=== PATIENT | male | born 1965 | race Caucasian/White ===

== ENCOUNTER 2018-04-27 08:59 | Observation (INO) | payer BC ==
[2018-04-27 09:37] LABS: #Eosinphils 0.3 thou/uL (0.0-0.7); #Lymphocytes 1.6 thou/uL (1.20-3.40); #Monocytes 0.5 thou/uL (0.11-0.59); #Neutrophils 3.2 thou/uL (1.40-6.50); %Basophils 0.7 % (0.0-1.0); %Eosinophils 4.8 % (0.0-10.0); %Lymphocytes 28.3 % (21.0-51.0); %Monocytes 8.1 % (0.0-10.0); %Neutrophils 58.1 % (42.0-75.0); Hemoglobin 13.3 g/dL (14.0-18.0); Mean Corpuscular HGB CONC 33.7 g/dL (32.0-36.0); Mean Corpuscular Hemoglobin 31.2 pg (27.0-31.0); Mean Corpuscular Volume 92.4 fL (78.0-98.0); Mean Platelet Volume 6.8 fL (7.4-10.4); Platelet Count 244 thou/uL (130-400); RBC Distribution Width 11.4 % (11.5-14.5); Red Blood Cell (RBC) Count 4.26 mill/uL (4.70-6.10); White Blood Cell (WBC) Count 5.5 thou/uL (4.8-10.8)
[2018-04-27 09:49] LABS: ALT (SGPT) 44 U/L (8-55); AST (SGOT) 23 U/L (5-34); Albumin 4.1 g/dL (3.5-5.0); Alkaline Phosphatase 70 U/L (40-150); Anion Gap 13 mmol/L (10-20); BUN (Urea Nitrogen) 18 mg/dL (8.4-25.7); Bilirubin, Total 0.8 mg/dL (0.2-1.2); Calc. Creatinine Clearance 0 mL/min (70-130); Carbon Dioxide 28 mmol/L (22-29); Chloride 102 mmol/L (98-107); Estimated GFR-MDRD 81; Globulin 2.4 g/dL (2.4-3.5); Glucose 125 mg/dL (70-105); Iron 127 ug/dL (65-175); Iron Binding Capacity, Total 305 mcg/dL (261-462); Potassium 4.9 mmol/L (3.5-5.1); Protein, Total 6.5 g/dL (6.0-8.3); Sodium 138 mmol/L (136-145)
[2018-04-27] MEDS ORDERED: Acetaminophen 650 MG Suppository PR PRN (12:14)
[2018-04-27] MEDS ORDERED: Acetaminophen 325 MG TAB PO PRN ×2 (12:14→12:20)
[2018-04-27] MEDS ORDERED: Ondansetron PF 4 MG/2 ML Vial IVP PRN (12:20)
[2018-04-27] MEDS ORDERED: Ondansetron ODT 4 MG TAB SL PRN (12:20)
[2018-04-27 12:23] VITALS: BMI 34.2
--- NOTE | 2018-04-27 12:34 | HP ---
PRIMARY CARE PROVIDER: Dr. Jg Aguila. CHIEF COMPLAINT: Bloody stool. HISTORY OF PRESENT ILLNESS: Mr. Springer is a pleasant 52-year-old gentleman, who was seen at [facility] on April 27, 2018. He is on aspirin at home. Approximately a week ago, he underwent colonoscopy with removal of two broad-based polyps. He was doing well until today morning. Today morning, he had 3 bloody stools. He denies any chest pain or shortness of breath. He denies any lightheadedness. He denies any nausea or vomiting. He denies any abdominal pain. REVIEW OF SYSTEMS: All other systems reviewed and found to be negative. PAST MEDICAL HISTORY: Myocardial infarction in 2017, diverticulosis. PAST SURGICAL HISTORY: PCI with coronary stent x1 and colon polyps removal. SOCIAL HISTORY: The patient denies tobacco use, alcohol use, or recreational drug use. ALLERGIES: NO KNOWN DRUG ALLERGIES. CURRENT MEDICATIONS: 1. Coreg 3.125 mg 2 times daily. 2. Lisinopril 40 mg daily. 3. Aspirin 81 mg daily. FAMILY HISTORY: Significant for ovarian cancer in his sister. PHYSICAL EXAMINATION: GENERAL: On examination, Mr. Springer is awake and alert, not in acute distress. VITAL SIGNS: Blood pressure is 129/76, pulse 80, respiratory rate 17, and oxygen saturation 96% on room air. He is afebrile. EYES: No scleral icterus, no conjunctival pallor. ENT: Moist mucosal membranes. No oropharyngeal erythema or exudates. NECK: Supple, nontender, trachea is midline. RESPIRATORY: Accessory muscles of breathing are not active. Chest wall movements are symmetric bilaterally. LUNGS: Clear to auscultation without wheeze, rhonchi, or crepitations. CARDIOVASCULAR: S1 and S2 are heard, regular. Peripheral pulses palpable. No carotid bruit. No pericardial rub. ABDOMEN: Soft, nontender, bowel sounds are heard, no hepatomegaly, no splenomegaly. NEUROLOGIC: Cranial nerves 2 through 12 intact, deep tendon reflexes 2+. MUSCULOSKELETAL: Power is 5/5 in all 4 extremities. SKIN: No rashes or subcutaneous nodules. LYMPHATIC: No cervical lymphadenopathy. PSYCHIATRIC: Normal mood, normal affect. The patient is oriented to person, place, and time. LABORATORY DATA: Mr. Springer's labs and investigations were reviewed. Normal white count; normocytic anemia with hemoglobin 13.3, last known hemoglobin 14.4 on November 29, 2016; normal platelet count, unremarkable comprehensive metabolic profile, and normal iron, normal TIBC, and normal ferritin. ASSESSMENT AND PLAN: Mr. Springer is a pleasant 52-year-old gentleman, who was seen at [facility] on April 27, 2018. His problem list includes: 1. Lower gastrointestinal bleed: Mr. Springer is presenting with lower gastrointestinal bleed following polypectomy. He will be admitted to the hospital for further management. He is hemodynamically stable. We will recheck his hemoglobin. GI service being consulted for possible repeat colonoscopy as needed. 2. Coronary artery disease: Stable, the patient denies any chest pain at this time. 3. Hypertension: We will monitor vital signs and titrate antihypertensives as needed. Many thanks for allowing me to participate in your patient's care. Please feel free to contact me with any questions or concerns. LEVEL OF RISK: Moderate. LEVEL OF COMPLEXITY: Moderate. Job ID: [id number]
[2018-04-27 12:42] LABS: Hemoglobin 13.7 g/dL (14.0-18.0)
[2018-04-27] MEDS ORDERED: GoLYTELY 4,000 ml Bottle PO SCH (13:30)
[2018-04-27] MEDS ORDERED: PHENYLEPHRINE-NS 100 MCG/ML 10 ML SYRINGE ONE (14:22)
[2018-04-27] MEDS ORDERED: Lidocaine 1% PF 5 ML VIAL ONE (14:22)
[2018-04-27] MEDS ORDERED: PROPOFOL 200 MG/20 ML VIAL ONE (14:22)
--- NOTE | 2018-04-27 17:23 | CON ---
DATE OF CONSULTATION: 04/27/2018 REFERRING DOCTOR: Dr. Artur Potts, [facility] Service. REASON FOR CONSULTATION: Hematochezia. HISTORY OF PRESENT ILLNESS: Mr. Fay Springer is a very pleasant 52-year-old male seen by me in November 2016 for screening colonoscopy. However, because of this DE and stent placement, the colonoscopy was not done. The patient came back for a colonoscopy on 04/19/2018. He had 2 large, broad-based sessile polyps removed from colon. Did well post intervention. He actually saw me in my office yesterday afternoon. He had no symptoms, no abdominal pain, or hematochezia. Apparently, he woke up early this morning with urgency to go to the bathroom when he had 3 bloody stools. He came to the ER because of above reason. Blood count is actually fairly stable. In the ER, hemoglobin was 13.3, hematocrit 39.4. Repeat H and H at 12 o'clock showed hemoglobin stable 13.7. Since admission to the hospital, he has had no more hematochezia. No abdominal pain. No nausea or vomiting. No relevant history. ALLERGIES: NONE. SOCIAL HISTORY: The patient does not smoke or drink alcohol. MEDICAL ILLNESSES: 1. Myocardial infarction in 2017, status post stent placement. 2. Diverticular disease. 3. Colon polyp. SURGERIES: 1. Status post coronary artery stent placement in November 2016. 2. Colonoscopy, polypectomy a week ago. MEDICATIONS: 1. Coreg 3.125 mg twice a day. 2. Lisinopril 40 once a day. 3. Aspirin 81 once a day. FAMILY HISTORY: Ovarian cancer in his sister. REVIEW OF SYSTEMS: A 10-point system was reviewed and unremarkable. PHYSICAL EXAMINATION: GENERAL: The patient awake, alert, and communicative, in no distress. VITAL SIGNS: Pulse is 76 and blood pressure 120/76. HEENT: Conjunctivae clear. NECK: Supple. No adenitis or thyromegaly noted. CARDIOVASCULAR: First and second heart sounds heard. LUNGS: Clear to auscultation. ABDOMEN: Soft. No organomegaly. No tenderness. No mass. EXTREMITIES: Reveal no edema. MOVIE WRITER: Within normal limits. CLINICAL IMPRESSION: A 52-year-old male with colonoscopy, polypectomy on 04/19/2018, he got two large broad-based sessile polyps. He saw me in my office yesterday and doing well. He appears to have post polypectomy bleeding. RECOMMENDATIONS: 1. Clear liquid diet. 2. Prep if the patient is ready for colonoscopy. I did explain to Mr. Springer about the bleeding most likely from polypectomy site . I will prep him today and hopefully colonoscopy can be done this afternoon. Job ID: [id number] MTDD
[2018-04-27 17:45] LABS: Hemoglobin 13.3 g/dL (14.0-18.0)
[2018-04-27] MEDS ORDERED: Promethazine HCl 25 MG/ML VIAL IM PRN (18:45)
[2018-04-27] MEDS ORDERED: Ondansetron HCl/PF 4 MG/2 ML Vial IVP PRN (18:45)
[2018-04-27] MEDS ORDERED: Promethazine HCl 25 MG/ML VIAL SLOW IVP PRN (18:45)
--- NOTE | 2018-04-27 20:24 | OP ---
DATE OF PROCEDURE: 04/27/2018 OPERATIVE PROCEDURES: 1. Colonoscopy with injection of 1:10,000 epinephrine for the polypectomy site. 2. A 7-Brazilian heater probe therapy at polypectomy site for the ascending colon. 3. Injection of epinephrine 1:10,000, a total of 4 mL over the polypectomy site over the transverse colon. 4. Hemoclip placed x2 over the distal vessel over the transverse colon polypectomy site. 5. Scattered left-sided diverticular disease. DESCRIPTION OF PROCEDURE: The patient was placed on his left lateral position and was given sedation by Anesthesia Department. A rectal exam was done before the scope was advanced into the rectum. No lesions felt on rectal exam. A Pentax video colonoscope was introduced into the rectum and advanced all the way into the cecum. The patient had blood-stained fluid throughout the colon. There was no active bleeding seen. The polypectomy site over the ascending colon identified. There was erythematous spot in the midline polypectomy site. 1:10,000 epinephrine injected at 1 mL increments, total of 3 mL. Following injection, the polypectomy site also was tattooed. This was subsequently cauterized with a 7-Brazilian BICAP probe with good hemostasis. The scope was carefully withdrawn back into the hepatic flexure and into the proximal transverse colon. The polypectomy site for the proximal transverse colon was seen. The polypectomy site with ulceration with visible vessel. 3 mL of epinephrine injected at 1 mL increments. Following injection, 2 hemoclips placed over the distal vessel with hemostasis. Another 1 mL of epinephrine injected at the polypectomy site. There was good hemostasis noted after the procedure. The colon decompressed and the scope removed. RECOMMENDATIONS: 1. Discontinue n.p.o. 2. Clear liquid diet. 3. If he does not have any records of bleeding, we will consider discharge home tomorrow. Job ID: [id number]
[2018-04-27] MEDS: Carvedilol 3.125 MG TAB PO SCH (20:32)
[2018-04-27 22:18] LABS: Hemoglobin 12.5 g/dL (14.0-18.0)
[2018-04-28] MEDS: Carvedilol 3.125 MG TAB PO SCH (07:55)
[2018-04-28 08:03] LABS: #Eosinphils 0.2 thou/uL (0.0-0.7); #Lymphocytes 1.8 thou/uL (1.20-3.40); #Monocytes 0.6 thou/uL (0.11-0.59); #Neutrophils 5.1 thou/uL (1.40-6.50); %Basophils 0.5 % (0.0-1.0); %Eosinophils 3.2 % (0.0-10.0); %Lymphocytes 23.4 % (21.0-51.0); %Monocytes 7.2 % (0.0-10.0); %Neutrophils 65.7 % (42.0-75.0); Hemoglobin 12.8 g/dL (14.0-18.0); Mean Corpuscular HGB CONC 33.8 g/dL (32.0-36.0); Mean Corpuscular Hemoglobin 31.8 pg (27.0-31.0); Mean Corpuscular Volume 94.1 fL (78.0-98.0); Mean Platelet Volume 7.1 fL (7.4-10.4); Platelet Count 222 thou/uL (130-400); RBC Distribution Width 11.5 % (11.5-14.5); Red Blood Cell (RBC) Count 4.04 mill/uL (4.70-6.10); White Blood Cell (WBC) Count 7.7 thou/uL (4.8-10.8)
[2018-04-28 08:23] LABS: Anion Gap 12 mmol/L (10-20); BUN (Urea Nitrogen) 11 mg/dL (8.4-25.7); Calc. Creatinine Clearance 170 mL/min (70-130); Calcium 8.9 mg/dL (7.8-10.44); Carbon Dioxide 23 mmol/L (22-29); Chloride 103 mmol/L (98-107); Estimated GFR-MDRD Greater than 90; Glucose 100 mg/dL (70-105); Potassium 4.2 mmol/L (3.5-5.1); Sodium 134 mmol/L (136-145)
[2018-04-28] MEDS ORDERED: Lisinopril 2.5 MG TAB PO SCH (09:00)
--- NOTE | 2018-04-28 11:50 | PRG ---
DATE OF SERVICE: 04/28/2018 SUBJECTIVE: This is a 52-year-old male who had a colonoscopy for cancer screening on 04/19/2018. He had two large sessile polyps removed. One was over the ascending colon, another was transverse colon. He came back with bleeding yesterday and hospitalized. He underwent EGD and colonoscopy last evening and was found to have a visible vessel over the proximal transverse colon polypectomy site. He also had some erythematous spots over the ascending colon polypectomy site. Both areas showed ulceration. The ascending colon polypectomy site injected with epinephrine and cauterized. The transverse colon polypectomy site injected with epinephrine and also had two hemoclips placed. Overnight, he has done very well. Blood count has been pretty stable. Did drop down from 13.5 to 12.8, but not a whole lot of drop. OBJECTIVE: VITAL SIGNS: Stable. GENERAL: He has abdominal pain. No nausea or vomiting. CARDIOVASCULAR SYSTEM/LUNGS: Within normal limits. ABDOMEN: Soft. No organomegaly. No tenderness. No masses. RECOMMENDATIONS: 1. Discharge home. 2. He is advised to come back to me if he develops any recurrence of bleeding. Job ID: [id number] [facility]
[2018-04-28 13:14] VITALS: BP 100/61; TEMP 98.1
--- NOTE | 2018-04-28 14:40 | DIS ---
DATE OF ADMISSION: 04/27/2018 DATE OF DISCHARGE: 04/28/2018 PRIMARY CARE PROVIDER: Dr. Jg Aguila. DISCHARGE DIAGNOSES: 1. Lower gastrointestinal bleed. 2. Acute blood loss anemia. CONSULTATIONS DURING THIS HOSPITALIZATION: Gastroenterology, Dr. Diaz. DISCHARGE MEDICATIONS: No change was made to Mr. Springer's pre-admission home medications as dictated on my history and physical note dated April 27, 2018. CONDITION OF PATIENT ON THE DAY OF DISCHARGE: Stable. I assessed Mr. Springer on the day of discharge. PHYSICAL EXAMINATION: VITAL SIGNS: Stable. CARDIAC: He denies any chest pain or shortness of breath. S1 and S2 are heard, regular. LUNGS: Clear to auscultation bilaterally. HOSPITAL COURSE: Mr. Springer is a pleasant 52-year-old gentleman, who was admitted to [facility] on April 27, 2018, for lower GI bleed. Please refer to my history and physical note dated April 27, 2018, for further details. He was seen by Gastroenterology Service. He underwent colonoscopy with injection of epinephrine to the polypectomy site, 7-Turkish heater probe therapy at polypectomy site for ascending colon and injection of epinephrine over the polypectomy site over the transverse colon. Hemoclips were placed over the distal vessel over the transverse colon polypectomy site. He also had scattered left-sided diverticular disease. The patient's hemoglobin remained stable, 12.8 on the day of discharge. The patient remained asymptomatic. He has been cleared for discharge by Gastroenterology Service. LABORATORY DATA: On the day of discharge, Mr. Springer has white count of 7700, hemoglobin 12.8, platelet count 222,000. Sodium 134, potassium 4.2, and creatinine 0.78. Many thanks for allowing me to participate in your patient's care. Please feel free to contact me with any questions or concerns. DISCHARGE DESTINATION: Home. Job ID: [id number]
--- NOTE | 2018-05-04 12:39 | EKG ---
Test Reason : Blood Pressure : / mmHG Vent. Rate : 088 BPM Atrial Rate : 088 BPM P-R Int : 156 ms QRS Dur : 092 ms QT Int : 364 ms P-R-T Axes : 038 022 042 degrees QTc Int : 440 ms Normal sinus rhythm Normal ECG Confirmed by ROSA ISELA FRANCO D.O. ([id number]), features editor JULIA SCHAEFFER ([id number]) on 05/04/2018 12:38:40 PM Referred By: Confirmed By:ROSA ISELA FRANCO D.O.
== END 2018-04-28 13:13 | disposition home or self-care (01) ==
LOC: ERS 08:59 → T4-A 12:16
PROVIDERS: ADMIT Internal Medicine; ATTEND Internal Medicine Gastroenterology
PROC: 0W3P8ZZ Control Bleeding in Gastrointestinal Tract, Via Natural or Artificial Opening Endoscopic (ICD-10-PCS; principal; 2018-04-27)
DX: K63.3 Ulcer of intestine (principal); D62 Acute posthemorrhagic anemia; K57.31 Diverticulosis of large intestine without perforation or abscess with bleeding; I25.2 Old myocardial infarction; I25.10 Atherosclerotic heart disease of native coronary artery without angina pectoris; I10 Essential (primary) hypertension; Z95.5 Presence of coronary angioplasty implant and graft; Z86.010 Personal history of colon polyps; Z79.82 Long term (current) use of aspirin; Z79.899 Other long term (current) drug therapy; Z98.890 Other specified postprocedural states
CPT/HCPCS: 36415; 80048; 80053; 82728; 83540; 83550; 85025; 93005; G0378; J2001; J2704

== ENCOUNTER 2018-05-02 14:37 | Emergency (ER) | payer BC ==
[2018-05-02 15:08] LABS: #Basophils 0.1 thou/uL (0.0-0.2); #Eosinphils 0.3 thou/uL (0.0-0.7); #Lymphocytes 1.8 thou/uL (1.20-3.40); #Monocytes 0.5 thou/uL (0.11-0.59); #Neutrophils 3.7 thou/uL (1.40-6.50); %Basophils 0.8 % (0.0-1.0); %Eosinophils 5.1 % (0.0-10.0); %Lymphocytes 28.1 % (21.0-51.0); %Monocytes 8.2 % (0.0-10.0); %Neutrophils 57.8 % (42.0-75.0); Hemoglobin 12.7 g/dL (14.0-18.0); Mean Corpuscular HGB CONC 34.2 g/dL (32.0-36.0); Mean Corpuscular Hemoglobin 31.9 pg (27.0-31.0); Mean Corpuscular Volume 93.2 fL (78.0-98.0); Mean Platelet Volume 6.8 fL (7.4-10.4); Platelet Count 265 thou/uL (130-400); RBC Distribution Width 11.9 % (11.5-14.5); Red Blood Cell (RBC) Count 3.98 mill/uL (4.70-6.10); White Blood Cell (WBC) Count 6.3 thou/uL (4.8-10.8)
[2018-05-02 15:23] LABS: ALT (SGPT) 40 U/L (8-55); AST (SGOT) 23 U/L (5-34); Albumin 4.4 g/dL (3.5-5.0); Alkaline Phosphatase 74 U/L (40-150); Anion Gap 12 mmol/L (10-20); BUN (Urea Nitrogen) 16 mg/dL (8.4-25.7); Bilirubin, Total 0.4 mg/dL (0.2-1.2); CK (CPK) 93 U/L (30-200); Calc. Creatinine Clearance 0 mL/min (70-130); Calcium 9.4 mg/dL (7.8-10.44); Carbon Dioxide 29 mmol/L (22-29); Chloride 101 mmol/L (98-107); Estimated GFR-MDRD 76; Globulin 2.2 g/dL (2.4-3.5); Glucose 158 mg/dL (70-105); Potassium 3.9 mmol/L (3.5-5.1); Protein, Total 6.6 g/dL (6.0-8.3); Sodium 138 mmol/L (136-145)
--- NOTE | 2018-05-02 15:55 | RAD ---
TWO VIEWS CHEST: HISTORY: Chest pain. FINDINGS: PA and lateral views of the chest are obtained. Comparison is made to previous exam from 11/25/2016. Two views chest demonstrate cardiomegaly. Mild pulmonary vascular congestion is seen. No evidence o f effusions, pneumonia, or pneumothorax seen. IMPRESSION: Mild pulmonary vascular congestion. POS: [facility]
[2018-05-02 17:19] LABS: Troponin I Less than 0.010 ng/mL (< 0.028)
== END 2018-05-02 17:52 | disposition home or self-care (01) ==
LOC: ERS 14:37
DX: R07.89 Other chest pain (principal); Z79.891 Long term (current) use of opiate analgesic; Z79.82 Long term (current) use of aspirin; Z79.899 Other long term (current) drug therapy
CPT/HCPCS: 36415; 71046; 80053; 82550; 84484; 85025; 93005; 94760

== ENCOUNTER 2018-05-07 09:08 | Inpatient (IN) | payer BC ==
[2018-05-07 09:53] LABS: #Basophils 0.1 thou/uL (0.0-0.2); #Eosinphils 0.3 thou/uL (0.0-0.7); #Lymphocytes 1.4 thou/uL (1.20-3.40); #Monocytes 0.4 thou/uL (0.11-0.59); #Neutrophils 3.3 thou/uL (1.40-6.50); %Basophils 1.2 % (0.0-1.0); %Eosinophils 5.4 % (0.0-10.0); %Lymphocytes 25.4 % (21.0-51.0); %Monocytes 7.7 % (0.0-10.0); %Neutrophils 60.3 % (42.0-75.0); Hemoglobin 12.7 g/dL (14.0-18.0); Mean Corpuscular HGB CONC 33.5 g/dL (32.0-36.0); Mean Corpuscular Hemoglobin 31.3 pg (27.0-31.0); Mean Corpuscular Volume 93.6 fL (78.0-98.0); Mean Platelet Volume 6.8 fL (7.4-10.4); Platelet Count 281 thou/uL (130-400); RBC Distribution Width 12.1 % (11.5-14.5); Red Blood Cell (RBC) Count 4.06 mill/uL (4.70-6.10); White Blood Cell (WBC) Count 5.5 thou/uL (4.8-10.8)
[2018-05-07 10:15] LABS: ALT (SGPT) 44 U/L (8-55); AST (SGOT) 27 U/L (5-34); Albumin 4.3 g/dL (3.5-5.0); Alkaline Phosphatase 73 U/L (40-150); Anion Gap 11 mmol/L (10-20); BUN (Urea Nitrogen) 12 mg/dL (8.4-25.7); Bilirubin, Total 0.5 mg/dL (0.2-1.2); Calc. Creatinine Clearance 0 mL/min (70-130); Calcium 9.3 mg/dL (7.8-10.44); Carbon Dioxide 29 mmol/L (22-29); Chloride 103 mmol/L (98-107); Estimated GFR-MDRD Greater than 90; Globulin 2.5 g/dL (2.4-3.5); Glucose 124 mg/dL (70-105); Lipase 43 U/L (8-78); Potassium 4.3 mmol/L (3.5-5.1); Protein, Total 6.8 g/dL (6.0-8.3); Sodium 139 mmol/L (136-145)
--- NOTE | 2018-05-07 10:18 | RAD ---
AP VIEW CHEST: 05/07/2018 HISTORY: Chest pain. COMPARISON: 11/25/2016 FINDINGS: AP view chest demonstrates mild cardiomegaly and pulmonary vascular congestion. No evidence of effus ions, pneumonia, or pneumothorax seen. IMPRESSION: Mild cardiomegaly; otherwise, unremarkable anterior-posterior view chest. POS: [facility]
[2018-05-07 10:42] LABS: CKMB 1.1 ng/mL (0-6.6)
[2018-05-07 13:18] LABS: Critical Call Chem Troponin I RESULT DECREASING; Troponin I 0.666 ng/mL (< 0.028)
[2018-05-07] MEDS ORDERED: Aspirin Chewable 81 MG TAB ONE (13:23)
[2018-05-07 16:15] LABS: Critical Call Chem Troponin I RESULT DECREASING; Troponin I 0.593 ng/mL (< 0.028)
[2018-05-07] MEDS ORDERED: Acetaminophen 325 MG TAB PO PRN (18:59)
[2018-05-07] MEDS ORDERED: Ondansetron ODT 4 MG TAB SL PRN (18:59)
[2018-05-07] MEDS ORDERED: Ondansetron PF 4 MG/2 ML Vial IVP PRN ×2 (18:59→19:53)
--- NOTE | 2018-05-07 19:04 | HP ---
PRIMARY CARE PROVIDER: Dr. Aguila. DOCK BUILDER: Sharon Floyd MD CHIEF COMPLAINT: Chest pain. HISTORY OF PRESENT ILLNESS: This is a 52-year-old male, who presented to [facility] Emergency Department complaining of central chest pain and pressure while running on a treadmill. The patient states he was at cardiac rehab, running on the treadmill, which he does approximately 3 times per week, went approximately 3 minutes into the session, he had central chest pain, pressure with radiation into the neck with pressure, which caused him to stop running. The patient states he had myocardial infarction in 2017 and underwent left heart cardiac catheterization with cardiac stent placement to the RCA x1. The patient was placed on aspirin and Brilinta, at which point, the Brilinta was recently discontinued in February 2018. The patient admits to being compliant with his chronic medication regimen including aspirin, lisinopril, and carvedilol. The patient does state the pain had some radiation to the left arm and left hand and improved after stopping running. The patient states he was recently evaluated in the emergency room approximately 5 days prior to this evaluation for chest pain, which was ruled noncardiac and atypical and released home. 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 The patient denied any cough, congestion, fever, chills, or trauma. The patient denied any change to his bowel habits, but does admit that he underwent colonoscopy exam recently with removal of several polyps and developed postpolypectomy bleeding. The patient required a second colonoscopy exam with epinephrine and hemoclip application. The patient denied any need for blood transfusions and the patient states he resumed his home aspirin regimen. In the emergency room, the patient underwent general evaluation including troponin monitoring showing elevated level of 0.8. The patient received aspirin 243 mg and was referred to the Hospitalist Service for further evaluation. PAST MEDICAL HISTORY: 1. Coronary artery disease, status post cardiac stent placement x1 to the right coronary artery in 2016. 2. Lower GI bleed status post polypectomy. 3. Acute blood loss anemia not requiring transfusion. 4. Hyperlipidemia. 5. Hypertension. 6. Diverticulosis. PAST SURGICAL HISTORY: 1. Status post percutaneous coronary intervention with coronary stent placement x1 to the right coronary artery. 2. Status post polypectomy. CURRENT MEDICATIONS: 1. Coreg 3.125 mg p.o. b.i.d. 2. Lisinopril 40 mg p.o. daily. 3. Enteric-coated aspirin 81 mg p.o. daily. ALLERGIES: NO KNOWN DRUG ALLERGIES. FAMILY HISTORY: Positive for ovarian cancer in his sister. SOCIAL HISTORY: The patient denies any current alcohol, tobacco, or illicit drug use. Accompanied by his son in the hospital. He owns a [employer] business. REVIEW OF SYSTEMS: CONSTITUTIONAL: Negative for weight loss or gain, ability to conduct usual activities. SKIN: Negative for rash, itching. EYES: Negative for double vision, pain. ENT/MOUTH: Negative for nose bleeding, neck stiffness, pain, tenderness. CARDIOVASCULAR: Negative for palpitations, dyspnea on exertion, orthopnea. RESPIRATORY: Negative for shortness of breath, wheezing, cough, hemoptysis, fever or night sweats. GASTROINTESTINAL: Negative for poor appetite, abdominal pain, heartburn, nausea, vomiting, constipation, or diarrhea. GENITOURINARY: Negative for urgency, frequency, dysuria, nocturia. MUSCULOSKELETAL: Negative for pain, swelling. NEUROLOGIC/PSYCHIATRIC: Negative for anxiety, depression. ALLERGY/IMMUNOLOGIC: Negative for skin rash, bleeding tendency. Otherwise, negative except as stated per HPI. PHYSICAL EXAMINATION: VITAL SIGNS: On admission; blood pressure 127/78, pulse 78, respiratory rate 18, temperature 98 degrees Fahrenheit, and O2 saturation 98% on room air. GENERAL APPEARANCE: This is a 52-year-old male, alert and oriented x3, pleasant conversant, smiling, in no acute distress. HEENT: Pupils are equal, round, and reactive to light and accommodation. Extraocular muscles are intact. No scleral icterus. No conjunctival injection. Nares patent. OP is clear. Teeth in good repair. NECK: Supple. No cervical adenopathy. No thyromegaly. No carotid bruits. No JVD appreciated. Cervical spine with full active and passive range of motion. No meningeal signs noted. CHEST: Lungs are clear to auscultation bilaterally. CARDIOVASCULAR: S1 and S2 without noted murmur, rub, or gallop. ABDOMEN: Rounded, soft, nontender, and nondistended. Bowel sounds are positive in all 4 quadrants. There is no hepatosplenomegaly. No abdominal bruits. No rebound or guarding appreciated. EXTREMITIES: Warm and dry with fair turgor. No clubbing, cyanosis, or asymmetric edema appreciated. Pulses palpable distally at the dorsalis pedis, posterior tibial, and popliteal arteries bilaterally. Capillary refill less than 2 seconds. NEUROLOGIC: Cranial nerves 2 through 12 are grossly intact. No focal or lateralizing signs appreciated. PERTINENT LAB AND X-RAY FINDINGS: Basic metabolic profile within normal limits. Troponin I ranged between 0.593 to 0.8. Albumin 4.3 and lipase 43. CBC showed a hemoglobin of 13, hematocrit 38, and platelet count 281. Portable chest x-ray dated 05/07/2018 showed no acute cardiopulmonary process. EKG dated 05/07/2018 by my interpretation shows a sinus mechanism with heart rates in the 90s. Normal R-wave progression noted in precordial leads. Normal axis. No acute ST-T wave changes noted. ASSESSMENT AND PLAN: 1. Non-ST elevation myocardial infarction. The patient will be admitted to the telemetry unit. Continue aspirin 325 mg daily. Consult Cardiology Service for further evaluation and left heart catheterization to further define coronary anatomy. Nitroglycerin 0.4 mg sublingually q.5 minutes p.r.n. chest pain. Check 2D transthoracic echocardiogram for ejection fraction and cardiac efficiency. 2. Coronary artery disease. History of stent placement x1 to the right coronary artery. See #1 above. Continue aspirin, Coreg, and lisinopril. 3. Hypertension. Resume home antihypertensive regimen and monitor clinical response. 4. Dyslipidemia. Start Zetia 10 mg at bedtime and Crestor 20 mg at bedtime. 5. Prophylaxis. Sequential compression devices while in bed. Pepcid 20 mg p.o. b.i.d. 6. Code Status is full. Surrogate medical decision maker is the patient's spouse. Job ID: [id number]
[2018-05-07 19:33] VITALS: BMI 32.8
[2018-05-07] MEDS ORDERED: hydrALAZINE 20 MG/ML VIAL SLOW IVP PRN (19:53)
[2018-05-07] MEDS ORDERED: Ondansetron ODT 4 MG TAB PO PRN (19:53)
[2018-05-07] MEDS ORDERED: Morphine 4 MG/ML VIAL SLOW IVP PRN (19:53)
[2018-05-07] MEDS ORDERED: Nitroglycerin 0.4 MG TAB (25 Tab Bottle) SL PRN (19:53)
[2018-05-07] MEDS ORDERED: Rosuvastatin 20 MG TAB PO SCH (21:00)
[2018-05-07] MEDS ORDERED: Ezetimibe 10 MG TAB PO SCH (21:00)
[2018-05-07] MEDS: Carvedilol 3.125 MG TAB PO SCH (21:12)
[2018-05-07] MEDS: Famotidine 20 MG TAB PO SCH (21:12)
[2018-05-08] MEDS: Acetaminophen 500 MG TAB PO PRN ×2 (01:09→10:11)
[2018-05-08 06:41] LABS: Anion Gap 12 mmol/L (10-20); BUN (Urea Nitrogen) 12 mg/dL (8.4-25.7); Calc. Creatinine Clearance 142 mL/min (70-130); Calcium 9.2 mg/dL (7.8-10.44); Carbon Dioxide 28 mmol/L (22-29); Cardiac Risk 5.7 (Less than 4.5); Chloride 103 mmol/L (98-107); Cholesterol 198 mg/dl (< 200 Desired); Estimated GFR-MDRD 88; Glucose 108 mg/dL (70-105); HDL Cholesterol 35 mg/dL (>60 Neg Risk); LDL Cholesterol, Calculated 128 mg/dL; Potassium 4.4 mmol/L (3.5-5.1); Sodium 139 mmol/L (136-145); Triglycerides 177 mg/dL (Less than 150)
[2018-05-08 06:48] LABS: Hemoglobin 12.6 g/dL (14.0-18.0); Mean Corpuscular HGB CONC 33.7 g/dL (32.0-36.0); Mean Corpuscular Hemoglobin 31.7 pg (27.0-31.0); Mean Platelet Volume 6.9 fL (7.4-10.4); Platelet Count 266 thou/uL (130-400); RBC Distribution Width 12.1 % (11.5-14.5); Red Blood Cell (RBC) Count 3.98 mill/uL (4.70-6.10); White Blood Cell (WBC) Count 7.5 thou/uL (4.8-10.8)
[2018-05-08] MEDS ORDERED: Iopamidol 370 76% 100 ML VIAL ONE (07:19)
[2018-05-08] MEDS: Famotidine 20 MG TAB PO SCH (08:28)
[2018-05-08] MEDS: Carvedilol 3.125 MG TAB PO SCH (08:28)
[2018-05-08] MEDS ORDERED: Loratadine 10 MG TAB PO PRN (08:44)
[2018-05-08] MEDS ORDERED: Fluticasone Propionate Nasal Spray 16 gm Bottle NASAL SCH (09:00)
[2018-05-08] MEDS ORDERED: Aspirin 325 mg Enteric Coated Tablet PO SCH (09:00)
[2018-05-08] MEDS ORDERED: Lisinopril 2.5 MG TAB PO SCH (09:00)
[2018-05-08] MEDS ORDERED: TICAGRELOR 90 MG TABLET PO SCH ×2 (09:30→21:00)
[2018-05-08] MEDS ORDERED: Communication Order-Pharmacy FS SCH (09:30)
[2018-05-08 09:36] LABS: Band 3 % (5-11); Eosinophils 2 % (0-10); Lymphocytes 23 % (21-51); MDiff Complete? YES; Monocytes 4 % (0-10); Neutrophil 68 % (42-75); RBC Morphology Normal
[2018-05-08 11:58] VITALS: TEMP 98.4
[2018-05-08] MEDS ORDERED: Heparin 10,000 UNITS/1 ML VIAL ONE (12:25)
[2018-05-08] MEDS ORDERED: Nitroglycerin 100MG/250ML BOT 250 ML ONE (12:25)
[2018-05-08] MEDS ORDERED: Verapamil 5 MG/2 ML VIAL ONE (12:25)
--- NOTE | 2018-05-08 12:25 | CON ---
DATE OF CONSULTATION: 05/08/2018 INDICATION FOR CONSULTATION: A 52-year-old gentleman with a history of coronary artery disease, status post angioplasty and stent placement to the right coronary in 2016, who presents with a non ST-segment elevation myocardial infarction. HISTORY OF PRESENT ILLNESS: This very pleasant gentleman underwent angioplasty and stent placement to the right coronary artery after having a VFib arrest on November 26, 2016. He had been doing very well after the stent placement. He was seen in the office on 04/11/2018. He had minimal myocardial damage. He had been doing very well. He has been continuing to work [employer], [employer] and had noticed that he had some chest discomfort, which actually started in the throat and then went to the chest area. He was seen in the emergency room about a week ago and then did not have any symptoms. He did not have any abnormalities noted and was sent home. Then on Monday, he went back to cardiac rehab and again was on the treadmill and noticed he again had some throat tightness and chest pain and then radiation to the left arm. He then called the office and we directed him to the emergency room at which time he presented and was found to have some slight elevation of the cardiac enzymes with a troponin I of 0.79, which has now decreased down to 0.66 and again down to 0.59. His MB was only 1.1. Other than that, he has remained stable. He has had no further chest discomfort. This gentleman did undergo a stress test in April of 2018 in the office, which showed probably normal myocardial perfusion study. He did have some decreased radioactive tracer in the rest images, which improved in the stress images and wall motion was normal. Ejection fraction was estimated at 63%. PAST MEDICAL HISTORY: Significant with coronary artery disease as noted above, hypertension, hypercholesterolemia. He has a history of colon polyp, with the polyp recently reviewed and removed. He has had the VFib arrest on 11/26/2016 at which time he underwent a drug-eluting stent to the right coronary artery. FAMILY HISTORY: His maternal grandfather had heart disease. He has 4 children with no heart disease. He is . He continues to work. SOCIAL HISTORY: He smoked in the past, but he stopped smoking about 5 or 10 years ago. REVIEW OF SYSTEMS: A 12-point review of systems unremarkable except what was noted in the history of present illness. His present. PRESENT MEDICATIONS: Included: Atorvastatin 40 mg once daily. He was having problems taking his medication. We will try and change him over to Crestor. Lisinopril 2.5 mg daily. Nitroglycerin as needed. Coreg 3.125 mg b.i.d. Aspirin 81 mg daily. He also was taking Brilinta and this was stopped about a month ago after he had already had a stent placed in 2017, as he is to undergo the colonoscopy. Perhaps now, since he had that we have stopped the Brilinta, he has developed further symptoms. PHYSICAL EXAMINATION: GENERAL: Reveals a well-developed, well-nourished gentleman, no acute distress. VITAL SIGNS: Stable. Blood pressure is 138/66. He is afebrile. Heart rate is 80 and regular, respiratory rate 18, O2 saturations are 90-96 percent. HEENT: Shows the head to be normocephalic and atraumatic. Carotid pulses are present. There were no bruits. There is no JVD. The thyroid is not enlarged. CHEST: Clear to auscultation. There were no rales, rhonchi, or wheezing. CARDIOVASCULAR: Reveals a regular rate and rhythm. He has a normal S1, S2. There is no S3 or S4. There were no significant murmurs, heaves, thrills, bruits or rubs. ABDOMEN: Soft and nontender. Somewhat obese, but there is no masses or tenderness noted. EXTREMITIES: Showed no clubbing, cyanosis, or edema. Popliteal pulses, pedal pulses, radial pulses are all present. NEUROLOGIC: The patient is fully intact. He has normal strength and normal tone. SKIN: Warm and dry. PSYCHIATRIC: The patient is alert. He is pleasant. He is oriented. IMPRESSION: 1. [id number] elevation myocardial infarction. A 52-year-old patient with a history of coronary disease and angioplasty and stent placement in the past who had done very well until we stopped his Brilinta and this may be the etiology of the new non-ST elevation myocardial infarction at this time. The patient was advised to undergo repeat cardiac catheterization for evaluation of the stent and to rule out any evidence of progression of coronary artery disease. Previously he did not have any disease in the left anterior descending artery or left circumflex. 2. Hypertension, which is under good control with the present medications. 3. Hypercholesterolemia. He had been on Lipitor and then had some symptoms with taking this with muscle aches and cramps. We will change this to Crestor, to see whether or not he tolerates this medication. If not, he may be a candidate for Livalo or he may be a candidate for some of the newer medications or injectables such as PCSK9 medications. I have explained the procedure and the risks to him to include bleeding, infection, possible myocardial infarction, CVA, renal insufficiency, allergic contrast reaction and even the possibility of . He understands and agrees to proceed. We will plan for cardiac catheterization today. Job ID: [id number]
[2018-05-08] MEDS ORDERED: Midazolam HCl 2 mg/2 ml Vial ONE (13:11)
[2018-05-08] MEDS ORDERED: Acetaminophen/Codeine 30-300mg Tablet PO PRN ×2 (13:52)
[2018-05-08] MEDS ORDERED: Sodium Chloride 0.9% 200 ML IV PRN (13:52)
[2018-05-08] MEDS ORDERED: Nitroglycerin 0.4 MG TAB (25 Tab Bottle) SL PRN (13:52)
--- NOTE | 2018-05-08 14:06 | PDOC.PN ---
- Subjective Encounter Start Date: 05/08/18 Encounter Start Time: 14:03 Patient seen and examined for NSTEMI. No CP. No new complaints. No overnight events - Objective Resuscitation Status - Order Detail: 05/07/18 17:54 Resuscitation Status Routine Resuscitation Status: FULL: Full Resuscitation MAR Reviewed: Yes Vital Signs & Weight: Vital Signs (12 hours) Temp Pulse Resp BP Pulse Ox 05/08/18 11:52 98.4 F 83 18 125/58 L 97 05/08/18 08:28 96 05/08/18 07:18 98.3 F 85 18 138/66 96 05/08/18 03:55 98.6 F 81 18 103/57 L 93 L Weight Weight 235 lb 8 oz I&O: 05/07/18 05/08/18 05/09/18 06:59 06:59 06:59 Intake Total 380 Output Total 400 Balance -20 Result Diagrams: 05/08/18 05:40 05/08/18 05:40 EKG Reviewed by me: Yes (Tele SR) Phys Exam - Physical Examination Constitutional: NAD Respiratory: no wheezing, no rhonchi Cardiovascular: RRR, no rub Gastrointestinal: soft, no distention Musculoskeletal: no edema Neurological: non-focal, moves all 4 limbs Dx/Plan - Plan DVT proph w/SCDs 1. NSTEMI 2. CAD s/p stent 2017 3. HTN 4. HLD - not on Statins 5. h/o GI bleed PLAN: s/p Cath - no intervention Cont ASA/BB/ACEI Started on Crestor Cont other meds as below Review of Systems - Review of Systems Respiratory: negative: Cough, Dry, Shortness of Breath, Hemoptysis, SOB with Excertion, Pleuritic Pain, Sputum, Wheezing Cardiovascular: negative: chest pain, palpitations, orthopnea, paroxysmal nocturnal dyspnea, edema, light headedness, other Gastrointestinal: negative: Nausea, Vomiting, Abdominal Pain, Diarrhea, Constipation, Melena, Hematochezia, Other - Medications/Allergies Allergies/Adverse Reactions: Allergies Allergy/AdvReac Type Severity Reaction Status Date / Time No Known Allergies Allergy Verified 05/07/18 19:33 Medications: Current Medications Acetaminophen (Tylenol) 1,000 mg PO Q6H PRN PRN Reason: Mild Pain (1-3) Last Admin: 05/08/18 10:11 Dose: 1,000 mg Acetaminophen/Codeine Phosphate (Tylenol #3) 1 tab PO Q4H PRN PRN Reason: Moderate Pain (4-6) Acetaminophen/Codeine Phosphate (Tylenol #3) 2 tab PO Q4H PRN PRN Reason: Severe Pain (7-10) Aspirin (Ecotrin) 325 mg PO DAILY [facility] Last Admin: 05/08/18 08:29 Dose: 325 mg Carvedilol (Coreg) 3.125 mg PO BID [facility] Last Admin: 05/08/18 08:28 Dose: 3.125 mg Ezetimibe (Zetia) 10 mg PO HS [facility] Last Admin: 05/07/18 21:12 Dose: 10 mg Famotidine (Pepcid) 20 mg PO BID [facility] Last Admin: 05/08/18 08:28 Dose: 20 mg Fluticasone Propionate (Flonase Nasal [place]) 0 gm NASAL DAILY [facility] Last Admin: 05/08/18 09:18 Dose: 2 spr Hydralazine HCl (Apresoline) 10 mg SLOW IVP Q4H PRN PRN Reason: SBP > 180 and HR < 70 Sodium Chloride (Normal Saline 0.9%) 200 mls @ 0 mls/hr IV ONE PRN PRN Reason: SBP < 90 Stop: 05/09/18 13:53 Lisinopril (Zestril) 2.5 mg PO DAILY [facility] Last Admin: 05/08/18 08:28 Dose: 2.5 mg Loratadine (Claritin) 10 mg PO DAILYPRN PRN PRN Reason: Sinus Symptoms Last Admin: 05/08/18 09:18 Dose: 10 mg Miscellaneous Information (Communication Order-Pharmacy) 0 each FS ONE [facility] Stop: 05/08/18 23:59 Morphine Sulfate (Morphine) 2 mg SLOW IVP Q5MIN PRN PRN Reason: Chest Pain Nitroglycerin (Nitrostat) 0.4 mg SL Q5MIN PRN PRN Reason: Chest Pain Ondansetron HCl (Zofran Odt) 4 mg PO Q6H PRN PRN Reason: Nausea/Vomiting Ondansetron HCl (Zofran) 4 mg IVP Q6H PRN PRN Reason: Nausea/Vomiting Rosuvastatin Calcium (Crestor) 20 mg PO HS [facility] Last Admin: 05/07/18 21:12 Dose: 20 mg
[2018-05-08 16:56] VITALS: BP 115/61
--- NOTE | 2018-05-09 07:27 | CON ---
DATE OF CONSULTATION: 05/08/2018 ADDENDUM: Please refer the notes dictated by my nurse practitioner, Stephie Walton. We have discussed this patient together. I would agree with her assessment of this patient. INDICATION FOR CONSULTATION: A 52-year-old gentleman with some atypical chest pain with a history of syncope and questionable EKG changes on a stress test today. HISTORY OF PRESENT ILLNESS: This is a very pleasant 52-year-old gentleman who complained of some left-sided chest discomfort which woke him up early yesterday morning. He went to the restroom, took about 6 aspirin, and then had a syncopal episode. 911 was called. He was brought to the emergency room. He had no significant previous instances in the past. He has had no previous history of coronary artery disease. His father does have some history of hypercoagulability state, uncertain of which type this is, but the patient describes the pain as being on the left lateral chest area underneath the left breast area. He has no other risk factors that would indicate the reason for coronary artery disease. He underwent a stress test today and had some T-wave inversions in the 1st portion of the test, and then with peak exercise absolutely normal with no evidence of ST-segment depression or EKG changes otherwise, he has had no further significant chest discomfort since being in the hospital. Enzymes have remained negative. At this time, I have reviewed those EKG strips. I have also evaluated his echocardiogram, which is also normal with normal ejection fraction, only very trace to mild mitral and tricuspid valve regurgitation. For his past medical history, social history, family history, review of systems,medications, and allergies, please refer to the notes dictated by my nurse practitioner. PHYSICAL EXAMINATION: GENERAL: Reveals a well-developed, well-nourished gentleman, who is in no acute distress. He is alert. He is oriented. VITAL SIGNS: Stable, blood pressure 126/76, heart rate is 76 and regular, respiratory rate 20. HEENT: Shows head to be unremarkable and atraumatic. CHEST: Clear to auscultation. CARDIOVASCULAR: Reveals a regular rate and rhythm. Normal S1 and S2. No S3 or S4. There were no significant murmurs, heaves, thrills, bruits, or rubs. ABDOMEN: Soft, flat, and nontender. Positive bowel sounds are present. EXTREMITIES: No clubbing, cyanosis, or edema. Pedal pulses are present. NEUROLOGIC: The patient appears to be fully intact. SKIN: Warm and dry. LABORATORY DATA: Unremarkable. His hemoglobin is 14.5, platelet count 173,000, WBC of 4.8. His sodium was 140, potassium 3.8, blood sugar was 114. Cardiac enzymes are negative. IMPRESSION: 1. Atypical type chest pain with a normal stress test according to what I would interpret the stress test results as and I have reviewed the strips myself, atypical chest discomfort, and we just continue to follow. 2. History of syncope, most likely this was vasovagal syncope. He did urinate shortly before the episode of syncope, but I doubt that this is a micturition syncope, appears to be more vasovagal. He was somewhat diaphoretic when he woke back up from the syncopal episode and most likely was just vasovagal. At this time, I believe, the patient is stable for discharge. I will sign off his case. We will be more than happy to see him back in the office for followup or should he have any symptoms that may arise. Job ID: [id number]
[2018-05-09] MEDS ORDERED: Aspirin 81 mg Enteric Coated Tablet PO SCH (09:00)
--- NOTE | 2018-05-09 14:19 | DIS ---
DATE OF ADMISSION: 05/07/2018 DATE OF DISCHARGE: 05/08/2018 DISCHARGE DISPOSITION: Home. FOLLOWUP: 1. Follow up with primary care physician, Dr. Jg Aguila in 1 week. 2. Follow up with Cardiology, Dr. Floyd next month as scheduled. ALLERGIES: NO KNOWN DRUG ALLERGIES. THE PATIENT WAS SEEN AND EXAMINED ON THE DAY OF DISCHARGE. DENIES ANY NEW COMPLAINTS. NO CHEST PAIN, SHORTNESS OF BREATH OR PALPITATIONS REPORTED. DISCHARGE MEDICATIONS: 1. Aspirin 81 mg daily. 2. Brilinta 90 mg b.i.d. (new medication). 3. Crestor 20 mg at bedtime (new medication). 4. Lisinopril 2.5 mg daily. 5. Carvedilol 3.125 mg b.i.d. 6. Sublingual nitroglycerin as needed. BRIEF HOSPITAL COURSE: The patient is a 52-year-old male with coronary artery disease, hypertension, and hyperlipidemia, who presented to the hospital with chest discomfort. His workup was consistent with [id number] HI. His maximum troponin was 0.799. The patient was evaluated by Cardiology, Dr. Floyd. Cardiac catheterization was performed that showed patent stent in the mid RCA without any restenosis with 80% lesion in the intermediate branch. Left circumflex had no stenosis. LAD showed mild plaque. He has been started on Brilinta. Due to dyslipidemia, he has been started on Crestor. He was unable to tolerate Lipitor in the past. He has been cleared by Cardiology for discharge. FINAL DIAGNOSES: 1. Non-ST elevation myocardial infarction. 2. Coronary artery disease, status post RCA stent in 2017. 3. Hypertension. 4. Hyperlipidemia. 5. History of gastrointestinal bleeding. 6. Obesity with a BMI of 32.8. 7. Chronic anemia. DIAGNOSTIC TESTS: Fasting lipid, triglyceride 177, cholesterol 198, LDL 128, HDL 35. Risk associated with antiplatelet agent discussed with the patient, he stated understanding. Job ID: [id number]
== END 2018-05-08 17:46 | disposition home or self-care (01) | DRG 282 ==
LOC: ERS 09:08 → ERHOLD 11:24 → 2NO 18:56
PROVIDERS: ADMIT Family Medicine; ATTEND Family Medicine
PROC: 4A023N7 Measurement of Cardiac Sampling and Pressure, Left Heart, Percutaneous Approach (ICD-10-PCS; principal; 2018-05-07)
PROC: B2111ZZ Fluoroscopy of Multiple Coronary Arteries using Low Osmolar Contrast (ICD-10-PCS; 2018-05-07)
PROC: B2151ZZ Fluoroscopy of Left Heart using Low Osmolar Contrast (ICD-10-PCS; 2018-05-07)
DX: I21.4 Non-ST elevation (NSTEMI) myocardial infarction (principal); I25.10 Atherosclerotic heart disease of native coronary artery without angina pectoris; I10 Essential (primary) hypertension; E78.5 Hyperlipidemia, unspecified; Z87.891 Personal history of nicotine dependence; E78.00 Pure hypercholesterolemia, unspecified
CPT/HCPCS: 36415; 71045; 80048; 80053; 80061; 82553; 83690; 84484; 85007; 85025; 85027; 93005; 93458; 94760; 99152; 99153; C1769; J1644; J2250; Q9967